=== PATIENT | female | born 1980 | race African-American/Black ===

== ENCOUNTER 2017-02-01 20:01 | Emergency (ER) | payer OTHER ==
[~2017-02-01] VITALS: Ht 149.9 cm; Wt 74.4 kg
[~2017-02-01 20:01] MED LIST: AMOXICILLIN500 MG PO; ASPIRIN81 M2 PO; BIRTH CONTROL; IBUPROFEN800 MG PO; MOTRIN800 MG PO; NEURONTIN300 MG PO; NOHOMEMEDS; PRENATAL TABLE1 EAC3 PO; SOMA350 MG PO; SPRINTEC1 EACH PO; TRAMADOL HCL50 MG PO
[2017-02-01 21:00] LABS: INFLUENZA A VIRAL ANTIGEN NEGATIVE; INFLUENZA B VIRAL ANTIGEN POSITIVE
[2017-02-01] MEDS ORDERED: ROBITUSSIN AC,T10 ML PO (21:44)
[2017-02-01] MEDS ORDERED: MOTRIN800 MG PO (21:44)
[2017-02-01] MEDS ORDERED: VENTOLIN HFA18 GM IH (21:44)
[2017-02-01 22:01] VITALS: BP 112/72
== END 2017-02-01 22:03 | disposition home or self-care (01) ==
LOC: EME 20:01
DX: J10.1 Influenza due to other identified influenza virus with other respiratory manifestations (principal); Z87.891 Personal history of nicotine dependence
CPT/HCPCS: 87502; 99281; 99283

== ENCOUNTER 2017-03-27 15:47 | Emergency (ER) | payer OTHER ==
[~2017-03-27] VITALS: Ht 149.9 cm; Wt 72.3 kg
[~2017-03-27 15:47] MED LIST changes: +ROBITUSSIN AC,T10 ML PO; +VENTOLIN HFA18 GM IH
[2017-03-27 15:50] VITALS: BP 129/93
[2017-03-27] MEDS ORDERED: PREDNISONE50 MG PO ×2 (16:18→17:49)
[2017-03-27] MEDS ORDERED: TESSALON PERLE100 MG PO (17:49)
== END 2017-03-27 18:04 | disposition home or self-care (01) ==
LOC: EME 15:47
DX: R05 Cough (principal); Z87.891 Personal history of nicotine dependence; Z87.442 Personal history of urinary calculi
CPT/HCPCS: 71020; 99281; 99284